=== PATIENT | male | born 1950 | race African-American/Black ===

== ENCOUNTER 2017-03-02 21:21 | Emergency (ER) | payer MEDICARE ==
[~2017-03-02] VITALS: Ht 167.6 cm; Wt 101.0 kg
[~2017-03-02 21:21] MED LIST: DESE1CRE TOP; DOCU100T9 PO; MULT-65 PO; PRIN5TAB PO; PROC90TA PO; RANI300T PO; ZYRT10TA12 PO
[2017-03-02 21:24] VITALS: BP 147/79; PULSE 68; RESP 16; TEMP 98; O2SAT 100
[2017-03-02] MEDS ORDERED: SODIUM CHLORIDE 0.9% FLUSH 10 ML FLUSH IVF PRN (22:30)
[2017-03-02 22:43] LABS: BASOPHIL # 0.1 TH/MM3 (0-0.2); BASOPHIL % 1.4 % (0.0-2.0); EOSINOPHIL # 0.1 TH/MM3 (0-0.4); HEMO FLAGS DIFF FINAL; LYMPHOCYTE # 1.6 TH/MM3 (1.0-4.8); MEAN CELL VOLUME 90.4 FL (80.0-100.0); MEAN CORPUSCULAR HEMOGLOBIN 29.4 PG (27.0-34.0); MEAN CORPUSCULAR HGB CONC 32.5 % (32.0-36.0); NEUT % 55.6 % (16.0-70.0); PLATELET COUNT 267 TH/MM3 (150-450); RED BLOOD COUNT 4.09 MIL/MM3 (4.50-5.90); WHITE BLOOD COUNT 5.4 TH/MM3 (4.0-11.0)
[2017-03-02 22:57] LABS: APTT (PATIENT) 25.9 SEC (24.3-30.1); INTERNATIONAL NORMALIZED RATIO 0.9 RATIO; PROTHROMBIN TIME - PATIENT 10.2 SEC (9.8-11.6)
--- NOTE | 2017-03-02 22:58 | RADRPT ---
EXAM DATE/TIME: 03/02/2017 22:33 [facility] COMPARISON: CHEST SINGLE AP, October 11, 2012, 7:59. INDICATIONS : Heart palpitations, syncope MEDICAL HISTORY : Hypertension. Cardiovascular disease. SURGICAL HISTORY : CABG. ENCOUNTER: Initial ACUITY: 1 day PAIN SCORE: 5/10 LOCATION: Bilateral chest FINDINGS: Sternal wires from previous median sternotomy are noted. The lungs are under aerated. Minimal bibas ilar parenchymal changes are noted. Heart is minimally enlarged. Pulmonary vascularity is normal. CONCLUSION: 1. Evidence for previous bypass. 2. Under aerated with compensated cardiomegaly. Tom Ruggiero MD FACR on March 02, 2017 at 22:48 Board Certified Radiologist. This report was verified electronically.
[2017-03-02 23:02] LABS: ALT (GPT) 35 U/L (12-78); ANION GAP 8 MEQ/L (5-15); AST (GOT) 44 U/L (15-37); BICARBONATE 30.7 MEQ/L (21.0-32.0); BLOOD UREA NITROGEN 32 MG/DL (7-18); CHLORIDE 103 MEQ/L (98-107); GLOMERULAR FILTRATION RATE 91 ML/MIN (>89); MAGNESIUM 2.8 MG/DL (1.5-2.5); POTASSIUM 4.7 MEQ/L (3.5-5.1); SODIUM (NA) 142 MEQ/L (136-145)
[2017-03-02 23:11] LABS: ALKALINE PHOSPHATASE 79 U/L (45-117); CREATINE KINASE 535 U/L (39-308); TOTAL BILIRUBIN ADULT 0.2 MG/DL (0.2-1.0)
[2017-03-02 23:23] LABS: CKMB 6.7 NG/ML (0.5-3.6)
--- NOTE | 2017-03-03 00:26 | RADRPT ---
EXAM DATE/TIME: 03/03/2017 00:01 [facility] COMPARISON: No previous studies available for comparison. INDICATIONS : Dizziness and weakness. RADIATION DOSE: 43.46 CTDIvol (mGy) MEDICAL HISTORY : Hypertension. Coronary artery disease. CVA. SURGICAL HISTORY : Appendectomy. CABG ENCOUNTER: Initial ACUITY: 3 days PAIN SCALE: 0/10 LOCATION: cranial TECHNIQUE: Multiple contiguous axial images were obtained of the head. Using automated exposure control and adj ustment of the mA and/or kV according to patient size, radiation dose was kept as low as reasonably a chievable to obtain optimal diagnostic quality images. FINDINGS: There is a remote infarct in the right middle cerebral artery distribution with encephalomalacia. No mass, hemorrhage or midline shift. No recent infarct identified. CONCLUSION: 1. Remote infarct in right MCA distribution. No acute findings. Amilcar Marrero MD on March 03, 2017 at 0:22 Board Certified Radiologist. This report was verified electronically.
[2017-03-03 00:42] LABS: BACTERIA, URINE RARE /hpf; BLOOD, URINE NEG (NEG); COMMENT (UR) CULT NOT INDICATED; CULTURE IF INDICATED CULT NOT INDICATED; GLUCOSE,URINE NEG (NEG); HYALINE CAST, URINE 1 /lpf (RARE); KETONE, URINE NEG (NEG); MUCUS URINE FEW /lpf (OCC); NITRITE,URINE NEG (NEG); SQUAMOUS EPITHELIAL CELL URINE <1 /hpf (0-5); URINE COLOR YELLOW (YELLW/STRAW)
--- NOTE | 2017-03-03 00:57 | PD ---
HPI Chief Complaint: Syncope/Near-Syncope Time Seen by Provider: 22:19 Travel History International Travel<30 days: No Contact w/Intl Traveler<30days: No Traveled to known affect area: No History of Present Illness HPI 66 year-old male presents to the emergency department for complaint of intermittent episodes of dizziness over the past several days. No actual near- syncope or syncope. Patient denies any new upper or lower extremity numbness tingling or weakness or ataxia of gait. No diaphoresis no chest pain no pleuritic chest pain no shortness of breath no nausea no vomiting and no change in mentation visual disturbance or headache. Patient states episodes are brief in duration seconds induration. Patient states that due to having another episode again today decided to folic remaining get the episodes of feeling faint or near faint checked out. Patient has remote history of CVA without any residual deficit. Patient rates pain 0/10 in intensity. Patient has had no fever. Patient's had no recent long distance travel protracted bedrest. No lower extremity pain or swelling. PFSH Past Medical History Narrative Medical CAD hypertension dyslipidemia CVA ; CABG appendectomy; no tobacco use cervical nursing notes reviewed Hx Anticoagulant Therapy: No Cardiac Catheterization: Yes Cardiovascular Problems: Yes (HTN, CVA, Bypass surgery) High Cholesterol: Yes Chemotherapy: No Cerebrovascular Accident: No Coronary Artery Disease: Yes Diabetes: No Diminished Hearing: No Hypertension: Yes Respiratory: No Past Surgical History Appendectomy: Yes Coronary Artery Bypass Graft: Yes Hysterectomy: No Social History Alcohol Use: No Tobacco Use: No Substance Use: No Allergies-Medications (Allergen,Severity, Reaction): Coded Allergies: No Known Allergies (Verified , 03/02/17) Reported Meds & Prescriptions Reported Meds & Active Scripts Active Macrobid (Nitrofurantoin Monohydrate Macrocrystals) 100 Mg Capsule 100 Mg PO BID 3 Days Reported Triamcinolone Topical (Triamcinolone Acetonide) 0.1 % Oint 1 Applic TOPICAL BID Nifedipine ER 24 HR (Nifedipine) 60 Mg Tab 60 Mg PO BID Metoprolol Tartrate 25 Mg Tab 12.5 Mg PO BID Lisinopril 20 Mg Tab 20 Mg PO DAILY Gabapentin 100 Mg Cap 100 Mg PO TID Docusate Sodium 100 Mg Cap 100 Mg PO BID Clotrimazole Anti-Fungal Topical (Clotrimazole) 1% Cream 1 Applic TOPICAL BID Clopidogrel (Clopidogrel Bisulfate) 75 Mg Tab 75 Mg PO DAILY Cetirizine (Cetirizine HCl) 10 Mg Tab 10 Mg PO DAILY Aspirin 81 Mg Chew 81 Mg CHEW DAILY Meanijhzek-Wjidhpsxromwa-Siwdkuuo 50-325-40 Mg Tab 1 Tab PO BID PRN Do not exceed 6 tablets/day. Review of Systems Except as stated in HPI: all other systems reviewed are Neg Physical Exam Narrative GENERAL: Well-developed well-nourished male in no acute distress no respiratory distress SKIN: Warm and dry. HEAD: Atraumatic. Normocephalic. EYES: Pupils equal and round. Extraocular muscles intact. No scleral icterus. No injection or drainage. ENT: No nasal bleeding or discharge. Mucous membranes pink and moist. NECK: Trachea midline. No JVD. Supple no meningismus no nuchal rigidity CARDIOVASCULAR: Regular rate and rhythm. RESPIRATORY: No accessory muscle use. Clear to auscultation. Breath sounds equal bilaterally. GASTROINTESTINAL: Abdomen soft, non-tender, nondistended. Hepatic and splenic margins not palpable. MUSCULOSKELETAL: Extremities without clubbing, cyanosis, or edema. No obvious deformities. NEUROLOGICAL: Awake and alert. No obvious cranial nerve deficits. Motor grossly within normal limits. Five out of 5 muscle strength in the arms and legs. No pronator drift no limb ataxia Normal speech. PSYCHIATRIC: Appropriate mood and affect; insight and judgment normal. Data Data Last Documented VS Orders Complete Blood Count With Diff (03/02/17 22:19) Comprehensive Metabolic Panel (03/02/17 22:19) Magnesium (Mg) (03/02/17 22:19) Ckmb (Isoenzyme) Profile (03/02/17 22:19) Troponin I (03/02/17 22:19) Act Partial Throm Time (Ptt) (03/02/17 22:19) Prothrombin Time / Inr (Pt) (03/02/17 22:19) Urinalysis - C+S If Indicated (03/02/17 22:19) Chest, Single Ap (03/02/17 22:19) Ct Brain W/O Iv Contrast(Rout) (03/02/17 22:19) Ecg Monitoring (03/02/17 22:19) Iv Access Insert/Monitor (03/02/17 22:19) Oximetry (03/02/17 22:19) Sodium Chloride 0.9% Flush (Ns Flush) (03/02/17 22:30) CKMB (03/02/17 22:30) CKMB% (03/02/17 22:30) Orthostatic Vital Signs (03/02/17 23:22) Urine Culture (03/03/17 01:03) Electrocardiogram (03/02/17 21:50) Labs Laboratory Tests Test 03/03/17 00:25 Urine Color YELLOW Urine Turbidity CLEAR Urine pH 5.0 Urine Specific [place] 1.021 Urine Protein NEG mg/dL Urine Glucose (UA) NEG mg/dL Urine Ketones NEG mg/dL Urine Occult Blood NEG Urine Nitrite NEG Urine Bilirubin NEG Urine Urobilinogen LESS THAN 2.0 MG/DL Urine Leukocyte Esterase MOD Urine RBC LESS THAN 1 /hpf Urine WBC 2 /hpf Urine Squamous Epithelial <1 /hpf Cells Urine Bacteria RARE /hpf Urine Hyaline Casts 1 /lpf Urine Mucus FEW /lpf Microscopic Urinalysis Comment CULT NOT INDICATED MDM Medical Decision Making Medical Screen Exam Complete: Yes Emergency Medical Condition: Yes Medical Record Reviewed: Yes Interpretation(s) CBC & BMP Diagram 03/02/17 22:30 Vital Signs Date Time Temp Pulse Resp B/P Pulse Ox O2 Delivery O2 Flow Rate FiO2 03/02/17 22:22 61 94 Room Air 03/02/17 21:24 98.0 68 16 147/79 100 Room Air CK 535 elevated with MB percent 1.3% not elevated; troponin I less than 0.02, not elevated Urinalysis positive leukocyte Estrace and bacteria; culture obtained Differential Diagnosis Dizziness, TIA, CVA, arrhythmia, ACS, dehydration, UTI, sepsis Narrative Course Specimen collected and sent for resulting EKG shows no acute ST elevation or injury pattern change does have nonspecific T-wave inversion V2 Patient sent for CT imaging; delay due to trauma alert CT brain reveals no acute abnormality chest x-ray reveals no acute abnormality Patient feels well desirous of being discharged to home lab values imaging studies EKG have been discussed at bedside patient has not had any episodes of dizziness here in the emergency department is not desirous of being further evaluated or admitted. Patient will be discharged to home in the care of his family with recommend close follow-up with primary care provider in 2 days. Diagnosis Primary Impression: Dizziness Additional Impressions: UTI (urinary tract infection) Elevated CPK Referrals: Primary Care Physician 2 days Patient Instructions: General Instructions Additional Instructions: Increase fluid hydration Follow-up with primary care physician on Saturday Complete course of antibiotic as prescribed Monitor temperature for fever take acetaminophen/Tylenol for fever 100.4F or greater Med/Other Pt SpecificInfo: Prescription(s) given Scripts Nitrofurantoin Monohydrate Macrocrystals (Macrobid)100 Mg [id number] Mg PO BID 3 Days Ref 0 Prov:Claudia Kelly MD 03/03/17 Disposition: DISCHARGE HOME Condition: Stable Claudia Kelly MD March 03, 2017 00:57 Urine Nitrite NEG Urine Bilirubin NEG Urine Urobilinogen LESS THAN 2.0 MG/DL Urine Leukocyte Esterase MOD Urine RBC LESS THAN 1 /hpf Urine WBC 2 /hpf Urine Squamous Epithelial <1 /hpf Cells Urine Bacteria RARE /hpf Urine Hyaline Casts 1 /lpf Urine Mucus FEW /lpf Microscopic Urinalysis Comment CULT NOT INDICATED MDM Medical Decision Making Medical Screen Exam Complete: Yes Emergency Medical Condition: Yes Medical Record Reviewed: Yes Interpretation(s) CBC & BMP Diagram 03/02/17 22:30 Vital Signs Date Time Temp Pulse Resp B/P Pulse Ox O2 Delivery O2 Flow Rate FiO2 03/02/17 22:22 61 94 Room Air 03/02/17 21:24 98.0 68 16 147/79 100 Room Air CK 535 elevated with MB percent 1.3% not elevated; troponin I less than 0.02, not elevated Urinalysis positive leukocyte Estrace and bacteria; culture obtained Differential Diagnosis Dizziness, TIA, CVA, arrhythmia, ACS, dehydration, UTI, sepsis Narrative Course Specimen collected and sent for resulting EKG shows no acute ST elevation or injury pattern change does have nonspecific T-wave inversion V2 Patient sent for CT imaging; delay due to trauma alert CT brain reveals no acute abnormality chest x-ray reveals no acute abnormality Patient feels well desirous of being discharged to home lab values imaging studies EKG have been discussed at bedside patient has not had any episodes of dizziness here in the emergency department is not desirous of being further evaluated or admitted. Patient will be discharged to home in the care of his family with recommend close follow-up with primary care provider in 2 days. Diagnosis Primary Impression: Dizziness Additional Impressions: UTI (urinary tract infection) Elevated CPK Referrals: Primary Care Physician 2 days Patient Instructions: General Instructions Additional Instructions: Increase fluid hydration Follow-up with primary care physician on Saturday Complete course of antibiotic as prescribed Monitor temperature for fever take acetaminophen/Tylenol for fever 100.4F or greater Med/Other Pt SpecificInfo: Prescription(s) given Scripts Nitrofurantoin Monohydrate Macrocrystals (Macrobid)100 Mg [id number] Mg PO BID 3 Days Ref 0 Prov:Claudia Kelly MD 03/03/17 Disposition: 01 DISCHARGE HOME Condition: Stable Claudia Kelly MD March 03, 2017 00:57
[2017-03-03] MEDS ORDERED: DOCU100C PO (01:13)
[2017-03-03] MEDS ORDERED: CETI10 PO (01:13)
[2017-03-03] MEDS ORDERED: CLOP75TA PO (01:13)
[2017-03-03] MEDS ORDERED: CLOT1CRE6 TOPICAL (01:13)
[2017-03-03] MEDS ORDERED: TRIAM.1%T TOPICAL (01:13)
[2017-03-03] MEDS ORDERED: NIFE60TA58 PO ×2 (01:13)
[2017-03-03] MEDS ORDERED: BUTATAB6 PO (01:13)
[2017-03-03] MEDS ORDERED: METO25TA3 PO (01:13)
[2017-03-03] MEDS ORDERED: ASPI81CH CHEW (01:13)
[2017-03-03] MEDS ORDERED: GABA100C4 PO (01:13)
[2017-03-03] MEDS ORDERED: LISI-515 PO (01:13)
[2017-03-03] MEDS ORDERED: MACR100C2 PO (01:21)
--- NOTE | 2017-03-03 14:52 | EKG ---
Date Performed: 03/02/2017 Time Performed: 21:50:04 PTAGE: 66 years EKG: Sinus rhythm VOLTAGE CRITERIA FOR LVH NONSPECIFIC T-WAVE ABNORMALITY ABNORMAL ECG PREVIOUS TRACING : 10/07/2012 04.17 Compared to previous tracing, T wave changes have improved. Previous tracing showed slight ST elevation in leads I and aVL and V2 and V3. This has resolved. T w ave change still exists in leads V1 and V2 with some T-wave inversion. Overall, improvement in this t racing. DOCTOR: Saul Chavarria Interpretating Date/Time 03/03/2017 14:51:18
== END 2017-03-03 01:49 | disposition home or self-care (01) ==
LOC: NEPC 21:21
DX: R42 Dizziness and giddiness (principal); N39.0 Urinary tract infection, site not specified; R94.5 Abnormal results of liver function studies; R94.31 Abnormal electrocardiogram [ECG] [EKG]; I25.10 Atherosclerotic heart disease of native coronary artery without angina pectoris; I10 Essential (primary) hypertension
CPT/HCPCS: 70450; 71010; 80053; 81001; 82550; 82552; 83735; 84484; 85025; 85610; 85730; 93005; 99285

== ENCOUNTER 2017-03-19 11:58 | Emergency (ER) | payer MEDICARE ==
[~2017-03-19] VITALS: Ht 167.6 cm; Wt 109.0 kg
[~2017-03-19 11:58] MED LIST changes: +ASPI81CH CHEW; +BUTATAB6 PO; +CETI10 PO; +CLOP75TA PO; +CLOT1CRE6 TOPICAL; -DESE1CRE TOP; +DOCU100C PO; -DOCU100T9 PO; +GABA100C4 PO; +LISI-515 PO; +MACR100C2 PO; +METO25TA3 PO; -MULT-65 PO; +NIFE60TA58 PO; -PRIN5TAB PO; -PROC90TA PO; -RANI300T PO; +TRIAM.1%T TOPICAL; -ZYRT10TA12 PO
[2017-03-19 12:00] VITALS: BP 136/58; PULSE 64; RESP 15; TEMP 98.3; O2SAT 93
[2017-03-19 12:04] VITALS: BP 138/58
--- NOTE | 2017-03-19 12:13 | PD ---
HPI Chief Complaint: Dizziness Time Seen by Provider: 12:12 Travel History International Travel<30 days: No Contact w/Intl Traveler<30days: No Traveled to known affect area: No History of Present Illness HPI 66-year-old male came to the emergency room with history of lightheadedness that started at 9 this morning. Patient says the lightheadedness is more pronounced when he turns his head suddenly. He says that he was out in the heat 3 days ago and since then he has not been feeling too well. He did not keep himself hydrated well during that time. No history of chest pain or syncopal episode. Patient has history of cardiac disease and post CABG 4-5 years ago. He also has history of CVA. Years ago that has left him with some hemiparesis on the left side. Currently is awake and answering questions appropriately. PFSH Past Medical History Narrative Medical List of his past medical, surgical, social and family history as reviewed from the nursing note. Hx Anticoagulant Therapy: No Cardiac Catheterization: Yes Cardiovascular Problems: Yes High Cholesterol: Yes Chemotherapy: No Cerebrovascular Accident: Yes Coronary Artery Disease: Yes Diabetes: No Diminished Hearing: No Hypertension: Yes Respiratory: No Past Surgical History Appendectomy: Yes Coronary Artery Bypass Graft: Yes Hysterectomy: No Social History Alcohol Use: No Tobacco Use: No Substance Use: No Allergies-Medications (Allergen,Severity, Reaction): Coded Allergies: No Known Allergies (Verified , 03/19/17) Comments No known drug allergies Reported Meds & Prescriptions Reported Meds & Active Scripts Active Macrobid (Nitrofurantoin Monohydrate Macrocrystals) 100 Mg Capsule 100 Mg PO BID 3 Days Reported Triamcinolone Topical (Triamcinolone Acetonide) 0.1 % Oint 1 Applic TOPICAL BID Nifedipine ER 24 HR (Nifedipine) 60 Mg Tab 60 Mg PO BID Metoprolol Tartrate 25 Mg Tab 12.5 Mg PO BID Lisinopril 20 Mg Tab 20 Mg PO DAILY Gabapentin 100 Mg Cap 100 Mg PO TID Docusate Sodium 100 Mg Cap 100 Mg PO BID Clotrimazole Anti-Fungal Topical (Clotrimazole) 1% Cream 1 Applic TOPICAL BID Clopidogrel (Clopidogrel Bisulfate) 75 Mg Tab 75 Mg PO DAILY Cetirizine (Cetirizine HCl) 10 Mg Tab 10 Mg PO DAILY Aspirin 81 Mg Chew 81 Mg CHEW DAILY Ljpmmcoewx-Kmcqotnuyiery-Hupusfbx 50-325-40 Mg Tab 1 Tab PO BID PRN Do not exceed 6 tablets/day. Narrative Medication List of his home medications reviewed from the nursing note. Review of Systems Except as stated in HPI: all other systems reviewed are Neg Physical Exam Narrative GENERAL: Awake, alert, obese, moderate distress, old left hemiparesis. SKIN: Focused skin assessment warm/dry. HEAD: Atraumatic. Normocephalic. EYES: Pupils equal and round. No scleral icterus. No injection or drainage. ENT: No nasal bleeding or discharge. Mucous membranes pink and moist. NECK: Trachea midline. No JVD. CARDIOVASCULAR: Regular rate and rhythm. No murmur appreciated. RESPIRATORY: No accessory muscle use. Fine crackles bibasilar GASTROINTESTINAL: Abdomen soft, non-tender, nondistended. Hepatic and splenic margins not palpable. MUSCULOSKELETAL: No obvious deformities. No clubbing. No cyanosis. No edema. NEUROLOGICAL: Awake and alert. No obvious cranial nerve deficits. Mild left hemiparesis and left upper and lower extremity decreased sensation to soft touch. These are from previous stroke. Normal speech. PSYCHIATRIC: Appropriate mood and affect; insight and judgment normal. Data Data Last Documented VS Vital Signs Date Time Temp Pulse Resp B/P Pulse Ox O2 Delivery O2 Flow Rate FiO2 03/19/17 15:01 54 16 127/57 98 03/19/17 13:30 Room Air 03/19/17 12:00 98.3 Orders Electrocardiogram (03/19/17 12:23) Prothrombin Time / Inr (Pt) (03/19/17 12:23) Complete Blood Count With Diff (03/19/17 12:23) Basic Metabolic Panel (Bmp) (03/19/17 12:23) Creatine Kinase (Cpk) (03/19/17 12:23) Troponin I (03/19/17 12:23) Urinalysis - C+S If Indicated (03/19/17 12:23) Ct Brain W/O Iv Contrast(Rout) (03/19/17 12:23) Chest, Single Ap (03/19/17 12:23) Ecg Monitoring (03/19/17 12:23) Iv Access Insert/Monitor (03/19/17 12:23) Oximetry (03/19/17 12:23) Sodium Chloride 0.9% Flush (Ns Flush) (03/19/17 12:30) Sodium Chlorid 0.9% 500 Ml Inj (Ns 500 M (03/19/17 12:30) Orthostatic Vital Signs (03/19/17 12:23) B-Type Natriuretic Peptide (03/19/17 12:58) CKMB (03/19/17 12:45) CKMB% (03/19/17 12:45) Labs Laboratory Tests Test 03/19/17 03/19/17 12:00 12:45 Urine Color YELLOW Urine Turbidity HAZY Urine pH 5.0 Urine Specific [place] 1.027 Urine Protein TRACE mg/dL Urine Glucose (UA) NEG mg/dL Urine Ketones NEG mg/dL Urine Occult Blood NEG Urine Nitrite NEG Urine Bilirubin NEG Urine Urobilinogen 2.0 MG/DL Urine Leukocyte Esterase SMALL Urine RBC 1 /hpf Urine WBC 3 /hpf Urine Squamous Epithelial 1 /hpf Cells Urine Hyaline Casts 46 /lpf Urine Mucus FEW /lpf Microscopic Urinalysis Comment CATH-CULT NOT IND B-Type Natriuretic Peptide 48 PG/ML White Blood Count 6.0 TH/MM3 Red Blood Count 3.85 MIL/MM3 Hemoglobin 11.5 GM/DL Hematocrit 35.1 % Mean Corpuscular Volume 91.2 FL Mean Corpuscular Hemoglobin 29.9 PG Mean Corpuscular Hemoglobin 32.8 % Concent Red Cell Distribution Width 15.6 % Platelet Count 271 TH/MM3 Mean Platelet Volume 7.9 FL Neutrophils (%) (Auto) 61.6 % Lymphocytes (%) (Auto) 22.8 % Monocytes (%) (Auto) 12.2 % Eosinophils (%) (Auto) 2.0 % Basophils (%) (Auto) 1.4 % Neutrophils # (Auto) 3.7 TH/MM3 Lymphocytes # (Auto) 1.4 TH/MM3 Monocytes # (Auto) 0.7 TH/MM3 Eosinophils # (Auto) 0.1 TH/MM3 Basophils # (Auto) 0.1 TH/MM3 CBC Comment DIFF FINAL Differential Comment Prothrombin Time 10.2 SEC Prothromb Time International 0.9 RATIO Ratio Sodium Level 143 MEQ/L Potassium Level 4.9 MEQ/L Chloride Level 105 MEQ/L Carbon Dioxide Level 34.4 MEQ/L Anion Gap 4 MEQ/L Blood Urea Nitrogen 27 MG/DL Creatinine 1.06 MG/DL Estimat Glomerular Filtration 84 ML/MIN Rate Random Glucose 77 MG/DL Calcium Level 9.3 MG/DL Total Creatine Kinase 571 U/L Creatine Kinase MB 6.5 NG/ML Creatine Kinase MB % 1.1 % Troponin I 0.02 NG/ML MDM Medical Decision Making Medical Screen Exam Complete: Yes Emergency Medical Condition: Yes Medical Record Reviewed: Yes Interpretation(s) Twelve-lead EKG was reviewed by me. Normal sinus rhythm, LVH, anterior T-wave inversions, bradycardia. Heart rate of 58 bpm. Differential Diagnosis Intracranial bleed, dehydration, electrolyte abnormality Narrative Course 1:51 PM blood test results of back. Patient has elevated bicarbonate which I do not have a good explanation for. Orthostatic vital signs were negative for orthostatic hypertension. Chest x-rays negative. Awaiting for CT scan of his head. I am giving him 500 ML of fluid bolus. If the CT scan of the head is negative I'll discharge him home. 2:[address] scan shows old stroke but otherwise negative for any acute findings. I will discharge him home. Procedures EKG Prior to Arrival: No Diagnosis Primary Impression: Dehydration Additional Impression: Dizziness Referrals: Primary Care Physician 2 days Additional Instructions: Please return to the ER if the condition worsens or any other new concerns. Otherwise follow-up with your primary care in couple days. Drink lots of fluid keep yourself hydrated. Med/Other Pt SpecificInfo: No Change to Meds Disposition: 01 DISCHARGE HOME Condition: Stable Jose Roberto Foy MD Mar 19, 2017 12:13
[2017-03-19 12:17] VITALS: PULSE 64; RESP 16; O2SAT 95
[2017-03-19] MEDS ORDERED: SODIUM CHLORIDE 0.9% FLUSH 10 ML FLUSH IVF PRN (12:30)
[2017-03-19] MEDS ORDERED: SODIUM CHLORID 0.9% 500 ML INJ 500 ML IV ONE (12:30)
[2017-03-19 12:54] LABS: AUTOMATED NEUTROPHIL # 3.7 TH/MM3 (1.8-7.7); BASOPHIL # 0.1 TH/MM3 (0-0.2); BASOPHIL % 1.4 % (0.0-2.0); EOSINOPHIL # 0.1 TH/MM3 (0-0.4); HEMATOCRIT 35.1 % (39.0-51.0); HEMO FLAGS DIFF FINAL; LYMPH % 22.8 % (9.0-44.0); LYMPHOCYTE # 1.4 TH/MM3 (1.0-4.8); MEAN CELL VOLUME 91.2 FL (80.0-100.0); MEAN CORPUSCULAR HEMOGLOBIN 29.9 PG (27.0-34.0); MEAN CORPUSCULAR HGB CONC 32.8 % (32.0-36.0); MONO % 12.2 % (0.0-8.0); NEUT % 61.6 % (16.0-70.0); PLATELET COUNT 271 TH/MM3 (150-450); RED BLOOD COUNT 3.85 MIL/MM3 (4.50-5.90); RED CELL DISTRIBUTION WIDTH 15.6 % (11.6-17.2)
[2017-03-19 13:04] LABS: INTERNATIONAL NORMALIZED RATIO 0.9 RATIO; PROTHROMBIN TIME - PATIENT 10.2 SEC (9.8-11.6)
[2017-03-19 13:14] LABS: BICARBONATE 34.4 MEQ/L (21.0-32.0); POTASSIUM 4.9 MEQ/L (3.5-5.1)
--- NOTE | 2017-03-19 13:22 | RADRPT ---
EXAM DATE/TIME: 03/19/2017 12:42 [facility] COMPARISON: CHEST SINGLE AP, March 02, 2017, 22:33. INDICATIONS : Shortness of breath. MEDICAL HISTORY : Hypertension. Cardiovascular disease. SURGICAL HISTORY : CABG. ENCOUNTER: Initial ACUITY: 1 day PAIN SCORE: 0/10 LOCATION: Bilateral chest FINDINGS: The lungs are hypoaerated but are otherwise clear. Median sternotomy wires from previous open heart surgery are noted. Osseous structures are intact. CONCLUSION: No evidence of acute cardiopulmonary process. Status post CABG Mervin Durán MD on March 19, 2017 at 13:19 Board Certified Radiologist. This report was verified electronically.
[2017-03-19 13:28] LABS: BLOOD, URINE NEG (NEG); GLUCOSE,URINE NEG (NEG); HYALINE CAST, URINE 46 /lpf (RARE); KETONE, URINE NEG (NEG); MUCUS URINE FEW /lpf (OCC); NITRITE,URINE NEG (NEG); SQUAMOUS EPITHELIAL CELL URINE 1 /hpf (0-5); URINE COLOR YELLOW (YELLW/STRAW)
[2017-03-19 13:29] LABS: COMMENT (UR) CATH-CULT NOT IND; CULTURE IF INDICATED CATH CULTURE NOT IND
[2017-03-19 13:30] VITALS: BP_SYST 119; BP_SYST 123; BP_DIAS 55; BP_DIAS 60; BP_DIAS 73; O2SAT 96
[2017-03-19 13:30] LABS: CKMB 6.5 NG/ML (0.5-3.6)
--- NOTE | 2017-03-19 14:06 | RADRPT ---
EXAM DATE/TIME: 03/19/2017 13:43 [facility] COMPARISON: CT BRAIN W/O CONTRAST, March 03, 2017, 0:01. INDICATIONS : Dizziness and light headed. RADIATION DOSE: 40.19 CTDIvol (mGy) MEDICAL HISTORY : Cardiovascular disease. CVA SURGICAL HISTORY : Appendectomy. CABG ENCOUNTER: Initial ACUITY: 1 day PAIN SCALE: 2/10 LOCATION: cranial TECHNIQUE: Multiple contiguous axial images were obtained of the head. Using automated exposure control and adj ustment of the mA and/or kV according to patient size, radiation dose was kept as low as reasonably a chievable to obtain optimal diagnostic quality images. FINDINGS: CEREBRUM: A large area of encephalomalacia is identified in the posterior right frontal lobe. Encephalomalacia is also seen within the insula. These changes were present previously and appear stable. There is no evidence of acute infarct, hemorrhage, mass effect or edema. POSTERIOR FOSSA: The cerebellum and brainstem are intact. The 4th ventricle is midline. The cerebellopontine angle i s unremarkable. EXTRACRANIAL: The visualized portion of the orbits is intact. SKULL: The calvaria is intact. No evidence of skull fracture. CONCLUSION: Old right frontal and insular infarcts. No evidence of acute infarct, hemorrhage, mass or edema. Stable exam compared to previous study of 03/03 2017. Mervin Durán MD on March 19, 2017 at 14:00 Board Certified Radiologist. This report was verified electronically.
[2017-03-19 15:01] VITALS: BP 127/57
--- NOTE | 2017-03-19 18:15 | EKG ---
Date Performed: 03/19/2017 Time Performed: 12:28:06 PTAGE: 66 years EKG: SINUS BRADYCARDIA POSSIBLE LEFT ATRIAL ENLARGEMENT POSSIBLE LEFT VENTRICULAR HYPERTROPHY No nspecific T wave changes ABNORMAL ECG NO PREVIOUS TRACING DOCTOR: Robert Lane Interpretating Date/Time 03/19/2017 18:14:09
== END 2017-03-19 15:11 | disposition home or self-care (01) ==
LOC: NEPD 11:58
DX: E86.0 Dehydration (principal); I10 Essential (primary) hypertension; I25.10 Atherosclerotic heart disease of native coronary artery without angina pectoris; R00.1 Bradycardia, unspecified; Z95.1 Presence of aortocoronary bypass graft
CPT/HCPCS: 70450; 71010; 80048; 81001; 82550; 82552; 83880; 84484; 85025; 85610; 93005; 96360; 99285; J7040